=== PATIENT | male | born 1955 | race Caucasian/White ===

== ENCOUNTER 2019-06-20 09:54 | Outpatient (CLI) | payer BC, OTHER ==
[~2019-06-20] VITALS: Ht 180.3 cm; Wt 58.7 kg
[~2019-06-20 09:54] MED LIST: ACHD5005 PO; AMLO10TA82 PO; ATEN25TA PO; CPR500T PO; DEXL60CA5 PO; DICY10SO PO; DICY20TA57 PO; FLUC100T PO; HYDR-3583 PO; LISI10TA2 PO; OMEP-10; OMEP-10 PO; SUCR1TAB PO; TRAM50TA2 PO; TRM50T PO
[2019-06-20] MEDS ORDERED: OMEP40CA27 PO (13:23)
== END 2019-06-20 13:29 | disposition home or self-care (01) ==
LOC: PREOP 09:54
PROVIDERS: ATTEND Surgery
DX: Z01.818 Encounter for other preprocedural examination (principal)

== ENCOUNTER 2019-07-16 09:03 | Outpatient (RCR) | payer OTHER ==
[~2019-07-16] VITALS: Ht 180 cm; Wt 59.0 kg
[~2019-07-16 09:03] MED LIST changes: +OMEP40CA27 PO
== END 2019-07-16 15:46 | disposition home or self-care (01) ==
LOC: PREOP 09:03
PROVIDERS: ATTEND Surgery
DX: Z01.818 Encounter for other preprocedural examination (principal); Z11.59 Encounter for screening for other viral diseases
CPT/HCPCS: 87635

== ENCOUNTER 2020-02-05 05:38 | Outpatient (RCR) | payer OTHER ==
[~2020-02-05] VITALS: Ht 180.3 cm; Wt 63.6 kg
== END 2020-02-05 13:06 | disposition home or self-care (01) ==
LOC: PREOP 05:38
PROVIDERS: ATTEND Surgery
DX: Z01.818 Encounter for other preprocedural examination (principal); K21.9 Gastro-esophageal reflux disease without esophagitis; Z20.828 Contact with and (suspected) exposure to other viral communicable diseases
CPT/HCPCS: 87635

== ENCOUNTER 2020-02-07 10:05 | Day surgery (SDC) | payer OTHER ==
[~2020-02-07] VITALS: Ht 180.3 cm; Wt 63.6 kg
[2020-02-07] VITALS (12 sets, daily range): BP systolic 130–179; BP diastolic 76–105
[2020-02-07] MEDS ORDERED: NS IV 500 ML 500 ML ONE (10:13)
[2020-02-07] MEDS ORDERED: HURRICAINE EXT TUBE (BENZOCAINE) XX PRN (10:15)
[2020-02-07] MEDS ORDERED: LIDOCAINE JELLY 2% 6 ML SYRINGE MM PRN (10:15)
[2020-02-07] MEDS ORDERED: MIDAZOLAM 5 MG/5 ML (VERSED) VIAL IV ONE (10:15)
[2020-02-07] MEDS ORDERED: fentaNYL INJECTION 100 MCG/2 ML AMP IVP ONE (10:15)
[2020-02-07] MEDS ORDERED: NS IV 500 ML 500 ML IV PRN (10:15)
[2020-02-07] MEDS ORDERED: LIDOCAINE JELLY 2% 6 ML SYRINGE ONE (10:50)
[2020-02-07] MEDS ORDERED: fentaNYL INJECTION 100 MCG/2 ML AMP ONE ×2 (10:50)
[2020-02-07] MEDS ORDERED: HURRICAINE EXT TUBE (BENZOCAINE) ONE (10:51)
[2020-02-07] MEDS ORDERED: MIDAZOLAM 5 MG/5 ML (VERSED) VIAL ONE ×3 (10:51)
--- NOTE | 2020-02-07 10:53 | Conscious Sedation/ASA ---
Conscious Sedation Pre-Proced Time 10:00 ASA Score 2 For ASA 3 and 4: Consider anesthesia and medical clearance. Also, for patients with a history of failed moderate sedation consider anesthesia. Airway Lungs Heart ASA score ASA 1: a normal healthy patient ASA 2: a patient with a mild systemic disease (mid diabetes, controlled hypertension, obesity ASA 3: a patient with a severe systemic disease that limits activity (angina, COPD, prior Myocardial infarction) ASA 4: a patient with an incapacitating disease that is a constant threat to life (CHF, renal failure) ASA 5: a moribund patient not expected to survive 24 hrs. (ruptured aneurysm) ASA 6: a declared brain- patient whose organs are being harvested. For emergent operations, add the letter E after the classification Mallampati Classification Grade 2 Sedation Plan Analgesia, Amnesia, Plan communicated to team members, Discussed options with patient/fam, Discussed risks with patient/fam The patient is an appropriate candidate to undergo the planned procedure, sedation, and anesthesia. The patient immediately re-assessed prior to indication. BEN MIRANDA MD Feb 07, 2020 10:53
--- NOTE | 2020-02-07 10:53 | Progress Note-Pre Operative ---
Pre-Operative Progress Note H&P Reviewed The H&P was reviewed, patient examined and no changes noted. Date Seen by Provider: Feb 07, 2020 Time Seen by Provider: 10:00 Date H&P Reviewed: Feb 07, 2020 Time H&P Reviewed: 10:00 Pre-Operative Diagnosis: dysphagia, GERD BEN MIRANDA MD Feb 07, 2020 10:53
--- NOTE | 2020-02-07 10:55 | Discharge Inst-Surgical ---
D/C Lap Instructions-RUBEN Follow Up diet as tolerated High Fiber Diet 25g or more per day Avoid Alcohol, Caffeine, Spicy [employer] and Acid foods. Drink 64 fluid oz or more of fluids per day. Symptoms to Report: Fever over 101 degree F, Nausea/Vomiting If any problems/questions: Contact your physician or go to Emergency Room BEN MIRANDA MD Feb 07, 2020 10:55
[2020-02-07] MEDS ORDERED: ONDANSETRON 4 MG/2 ML (SDV) Z0FRAN IVP PRN (11:00)
[2020-02-07] MEDS ORDERED: ACETAMINOPHEN 325 MG TABLET PO PRN (11:00)
[2020-02-07] MEDS ORDERED: HYDROcodone/APAP 5 MG/325 MG (LORTAB) TAB PO PRN (11:00)
[2020-02-07] MEDS ORDERED: morphine INJ 10 MG/ML 1ML (SYR OR VIAL) IVP PRN ×2 (11:00)
--- NOTE | 2020-02-07 11:37 | Progress Note-Post Operative ---
Post-Operative Progess Note Surgeon (s)/Crossing Flagman (s) Surgeon BEN MIRANDA MD Crossing Flagman: none Pre-Operative Diagnosis dysphagia, GERD Post-Operative Diagnosis esophageal candidiasis, reflux esophagitis(stage 3), moderate gastritis. Procedure & Operative Findings Date of Procedure 02/07/20 Procedure Performed/Findings EGD with bx and balloon dilatation Anesthesia Type cs Estimated Blood Loss Estimated blood loss (mL): minimal Specimens/Packing Specimens Removed ge jxn, antrum BEN MIRANDA MD Feb 07, 2020 11:37
--- NOTE | 2020-02-07 19:06 | OPERATIVE REPORT ---
DATE OF SERVICE: 02/07/2020 ATTENDING PRIMARY CARE PHYSICIAN: Dr. Shane Jimenez. PREOPERATIVE DIAGNOSIS: Recurrent dysphagia. POSTOPERATIVE DIAGNOSES: Reflux esophagitis stage II with a distal esophageal candidiasis and retained food substance within the esophagus, mild distal esophageal stricture. PROCEDURE: EGD with biopsy and balloon dilatation. SURGEON: Ben Miranda MD ANESTHESIA: Conscious sedation. ESTIMATED BLOOD LOSS: Minimal. FINDINGS: Reflux esophagitis stage II with a distal esophageal candidiasis and retained food substance within the esophagus, mild distal esophageal stricture. DISPOSITION: The patient tolerated the procedure well. INDICATIONS: The patient is a 64-year-old male known to us. He has had a longstanding history of gastroesophageal reflux disease as well as regurgitation. He underwent an esophageal manometry as well as a Fátima fundoplication in 1996 in [place]. He then had multiple issues with dysphagia and underwent reversal of the Fátima fundoplication and this was followed by [facility] gastropexy in 1999. This was also taken down due to his recurrent symptoms. We had done an EGD on him before in the past and was found to have esophageal strictures as well as esophageal candidiasis. He is again experiencing significant dysphagia and reflux. DESCRIPTION OF PROCEDURE: The patient was brought to the endoscopy suite, laid in left lateral decubitus position. After adequate IV pain and sedative medications and conscious sedation anesthesia, the mouthpiece was applied. The endoscope was then placed in the mouth, visualizing the pharynx and hypopharyngeal region. The endoscope was then gently intubated at the esophageal opening and esophagus insufflated. The endoscope was then advanced through the first, second and third portion of esophagus with softer retained food substance in the middle and distal third of the esophagus. The GE junction was identified and there was a mild distal esophageal stricture. However, in the distal third of the esophagus, white plaque was again identified consistent with esophageal candidiasis. A biopsy was taken of the GE junction with forceps with visualization of good hemostasis. The endoscope was then advanced into the stomach and endoscope retroflexed, visualizing the distal esophageal stricture. There was a moderate severity gastritis. No formal ulcerations, polyps, or any neoplasms and a biopsy was taken of the antrum to rule out H. pylori with visualization of good hemostasis. The endoscope was then advanced to the pylorus and the first and second portion of the duodenum, which appeared normal with no distal obstructions. The endoscope was then slowly withdrawn while taking a second look and suctioning of residual air with no additional findings. The patient tolerated the procedure well. We will recommend the necessary lifestyle and diet accommodation including small and more frequent meals, avoidance of eating at night as well as head elevation while lying supine. He also needs to proceed with lifestyle and dietary changes, which include smoking cessation as well as avoidance of caffeinated beverages, spicy, greasy and acidic foods. We will have him continue his omeprazole 40 mg daily; however, we will also proceed with another round of Diflucan for two weeks. We then proceeded with balloon dilatation of distal esophageal stricture. The endoscope was slowly withdrawn. The balloon was placed in the stomach and pulled back to the area of stricture and the balloon was then insufflated to 2, 4, then 6 atmospheres of pressure with moderate resistance or 20 mm in luminal diameter and left this in place for 60 seconds. The balloon was then desufflated and removed with visualization of good hemostasis as well as no mucosal tears. The endoscope was then slowly withdrawn while taking a second look and suctioning residual air with no additional findings. Job ID: [id number] DocumentID: [id number] Dictated Date: 02/07/2020 11:30:02 Blind Slat Stapling Machine Operator Date: 02/07/2020 19:04:44 Dictated By: BEN MIRANDA MD
== END 2020-02-07 12:30 | disposition home or self-care (01) ==
LOC: ENDO 10:05
PROVIDERS: ATTEND Surgery
DX: K29.50 Unspecified chronic gastritis without bleeding (principal); K21.00 Gastro-esophageal reflux disease with esophagitis, without bleeding; K22.2 Esophageal obstruction; T18.128A Food in esophagus causing other injury, initial encounter; K44.9 Diaphragmatic hernia without obstruction or gangrene; B37.81 Candidal esophagitis; I10 Essential (primary) hypertension; Z79.899 Other long term (current) drug therapy; Z87.11 Personal history of peptic ulcer disease
CPT/HCPCS: 88305

== ENCOUNTER → 2021-11-17 | Outpatient (CLI) | payer OTHER ==
[~2021-11-17] MED LIST changes: -OMEP40CA27 PO; +OMEP40CA6 PO
[2021-11-17 14:56] LABS: HEMATOCRIT 45 % (40-54); HEMOGLOBIN 16.5 g/dL (13.3-17.7); MEAN CORPUSCULAR HEMOGLOBIN 31 pg (25-34); MEAN CORPUSCULAR HGB CONC 36 g/dL (32-36); MEAN CORPUSCULAR VOLUME 85 fL (80-99); MEAN PLATELET VOLUME 9.9 fL (9.0-12.2); PLATELET COUNT 205 10^3/uL (130-400); WHITE BLOOD COUNT 11.3 10^3/uL (4.3-11.0)
[2021-11-17 15:04] LABS: ALBUMIN 4.4 GM/DL (3.2-4.5)
[2021-11-17 15:05] LABS: POTASSIUM 3.9 MMOL/L (3.6-5.0)
[2021-11-17 15:09] LABS: BILIRUBIN,TOTAL 0.8 MG/DL (0.1-1.0)
[2021-11-17 15:11] LABS: CREATININE SERUM 1.02 MG/DL (0.60-1.30)
--- NOTE | 2021-11-17 15:57 | Diagnostic Imaging Report ---
PROCEDURE: CT chest, abdomen, and pelvis with contrast. TECHNIQUE: Multiple contiguous axial images were obtained through the chest, abdomen, and pelvis after the administration of intravenous contrast. Auto Exposure Controls were utilized during the CT exam to meet ALARA standards for radiation dose reduction. INDICATION: Esophageal pain COMPARISON: 06/11/2014 FINDINGS: CT CHEST: Large amount of debris is again identified throughout the esophagus. Esophagus is moderately distended. It measures 5 cm in diameter. Postsurgical changes at the GE junction are noted. Cardiomediastinal structures show normal heart size. There is no large pericardial effusion. No pathologically enlarged or morphologically abnormal adenopathy is seen within the mediastinum, dean, nor axilla. Hypodense left thyroid lesion measures 1.4 cm in diameter. Evaluation lung carranza show background mild emphysematous changes. There is no focal consolidation, large effusion, no pneumothorax. 6 mm micronodules noted within the lingula of the left upper lobe (image 101, series 3). This however stable compared to 06/11/2014. Additional micronodule is seen within the far anterior margins of the left lower lobe (image 133, series 3). This measures approximately 3 mm in diameter and is stable compared to prior exam as well. Several other small micronodules are also seen on the right and are stable as well. No new suspicious pulmonary nodule or mass is seen. Osseous structures show no acute abnormalities. CT ABDOMEN: There is prominent diffuse gastric wall thickening. Small bowel loops are nondistended. Normal appendix cannot be adequately identified, but there is no pericecal inflammation. Multiple benign-appearing bilateral renal cysts are identified. Otherwise, kidneys, adrenal glands, spleen, pancreas, and liver have a normal CT appearance. There is no loculated fluid collection, free fluid or free air within the abdomen. There is no abnormal mesenteric or intracranial adenopathy. Moderate scattered calcified aortic arch or atherosclerosis is noted. There is also generalized anasarca. CT PELVIS: Urinary bladder is unopacified. No calculi are seen within urinary bladder. Prostate is enlarged. It measures 4.8 x 5.6 cm. There is no loculated fluid collection, free fluid or free air within the pelvis. No abnormal lymph nodes are seen. Osseous structures show no acute abnormalities. IMPRESSION: 1. Profound diffuse dilatation of the esophagus with large amount of foodstuff throughout the esophagus. This may relate to postsurgical changes at the GE junction. Achalasia is also consideration. Correlation with surgical history is advised. Further evaluation with esophagram may be of benefit. 2. Profound diffuse gastric wall thickening. Findings are nonspecific, but can be seen with gastritis. Correlation with upper endoscopy may be of benefit as well. 3. Prostatomegaly. Dictated by: Dictated on workstation # [id number]
== END ==
LOC: RAD 14:37
PROVIDERS: ATTEND Surgery
DX: K22.89 Other specified disease of esophagus (principal); K31.89 Other diseases of stomach and duodenum; N40.0 Benign prostatic hyperplasia without lower urinary tract symptoms
CPT/HCPCS: 36415; 71260; 74177; 80053; 85027

== ENCOUNTER 2021-12-08 06:27 | Outpatient (CLI) | payer OTHER ==
[~2021-12-08] VITALS: Ht 177.8 cm; Wt 59.0 kg
[2021-12-08] MEDS ORDERED: TMSL.4C PO (09:23)
[2021-12-08] MEDS ORDERED: PANT40TA52 PO (09:23)
== END 2021-12-08 09:24 | disposition home or self-care (01) ==
LOC: PREOP 06:27
PROVIDERS: ATTEND Surgery
DX: Z01.818 Encounter for other preprocedural examination (principal)

== ENCOUNTER 2021-12-17 10:59 | Day surgery (SDC) | payer OTHER ==
[~2021-12-17] VITALS: Ht 177 cm; Wt 59.0 kg
[~2021-12-17 10:59] MED LIST changes: +PANT40TA52 PO; +TMSL.4C PO
[2021-12-17] MEDS ORDERED: LACTATED RINGERS 1,000 ML IV STA (11:03)
[2021-12-17 11:05] VITALS: BP 127/82
[2021-12-17] MEDS ORDERED: LIDOCAINE JELLY 2% 6 ML SYRINGE MM PRN (11:15)
[2021-12-17] MEDS ORDERED: HURRICAINE EXT TUBE (BENZOCAINE) XX PRN (11:15)
--- NOTE | 2021-12-17 12:20 | Progress Note-Pre Operative ---
Pre-Operative Progress Note Date of Available H&P: Dec 17, 2021 Date H&P Reviewed: Dec 17, 2021 Time H&P Reviewed: 11:45 History & Physical: No changes noted Pre-Operative Diagnosis: screening o BEN MIRANDA MD Dec 17, 2021 12:20
--- NOTE | 2021-12-17 12:21 | Discharge Inst-Surgical ---
D/C Lap Instructions-RUBEN Follow Up Activity as tolerated High Fiber Diet 25g or more per day Avoid Alcohol, Caffeine, Spicy [employer] and Acid foods. Drink 64 fluid oz or more of fluids per day. Symptoms to Report: Fever over 101 degree F, Nausea/Vomiting If any problems/questions: Contact your physician or go to Emergency Room BEN MIRANDA MD Dec 17, 2021 12:21
[2021-12-17] MEDS ORDERED: ONDANSETRON 4 MG (ZOFRAN) ORAL DISSOLVE TAB PO PRN (12:30)
[2021-12-17] MEDS ORDERED: ONDANSETRON 4 MG/2 ML (SDV) Z0FRAN IVP PRN (12:30)
[2021-12-17] MEDS ORDERED: PROPOFOL INJECTION 50 ML IV ONE ×2 (12:51→13:24)
[2021-12-17] MEDS ORDERED: MIDAZOLAM 2 MG/2 ML (VERSED) VIAL ONE (12:51)
[2021-12-17 13:45] VITALS: BP 108/60
[2021-12-17 13:50] VITALS: BP_SYST 109; BP_DIAS 606; BP_DIAS 65
--- NOTE | 2021-12-17 14:03 | Progress Note-Post Operative ---
Post-Operative Progess Note Surgeon (s)/Extracorporeal Technician (s) Surgeon BEN MIRANDA MD Extracorporeal Technician: none Pre-Operative Diagnosis recurrent dysphagia Post-Operative Diagnosis retained food esophagus, distal esophageal stricutre x2, recurrent HH, severe gastritis. Procedure & Operative Findings Date of Procedure 12/17/21 Procedure Performed/Findings EGD with removal esoph FB, bx, dilatation x2. Anesthesia Type mac Estimated Blood Loss Estimated blood loss (mL): minimal Specimens/Packing Specimens Removed ge jxn, antrum BEN MIRANDA MD Dec 17, 2021 14:03
--- NOTE | 2021-12-17 14:24 | Anesthesia-General Post-Op ---
MAC Patient Condition Mental Status/LOC: Same as Preop Cardiovascular: Satisfactory Nausea/Vomiting: Absent Respiratory: Satisfactory Pain: Controlled Complications: Absent Post Op Complications Complications None Follow Up Care/Instructions Patient Instructions None needed. Anesthesiology Discharge Order Discharge Order Patient is doing well, no complaints, stable vital signs, no apparent adverse anesthesia problems. No complications reported per nursing. CARLOS NICOLE CRNA Dec 17, 2021 14:24
[2021-12-17 14:31] VITALS: BP 109/65
--- NOTE | 2021-12-17 16:08 | OPERATIVE REPORT ---
DATE OF SERVICE: 12/17/2021 ATTENDING PRIMARY CARE PHYSICIAN: Dr. Shane Jimenez. PREOPERATIVE DIAGNOSIS: Dysphagia with history of two distal esophageal strictures. POSTOPERATIVE DIAGNOSES: Retained food within the esophagus, stricture of the distal esophagus x2, recurrent hiatal hernia, severe gastritis, no distal obstructions. PROCEDURE: EGD with removal of esophageal foreign body, biopsy and balloon dilatation x2 on 2 different areas of the esophagus. SURGEON: Ben Miranda MD. ANESTHESIA: Monitored anesthesia care. ESTIMATED BLOOD LOSS: Minimal. FINDINGS: Retained food within the esophagus, stricture of the distal esophagus x2, recurrent hiatal hernia, severe gastritis, no distal obstructions. DISPOSITION: The patient tolerated the procedure well. INDICATIONS: The patient is a 66-year-old male known to us. He has a longstanding history of gastroesophageal reflux disease and underwent a hiatal hernia repair and Fátima fundoplication. He had significant dysphagia issues, and this was taken down to switch to a [facility] gastropexy. Over the time, he did develop recurrent dysphagia, found to have esophageal stricture as well as esophageal candidiasis. He underwent an EGD and balloon dilatation in 06/2019. We were able to dilate to 17 mm at that time. On 11/15/2021, he underwent another EGD as well as a balloon dilatation of two areas of the distal esophagus with stricture likely secondary from his previous esophageal surgeries. There is esophageal foreign body again. He again has recurrent dysphagia. DESCRIPTION OF PROCEDURE: The patient was brought to the endoscopy suite, laid in left lateral decubitus position with head elevated. After adequate IV pain and sedative medications and monitored anesthesia care, the mouthpiece was applied. The endoscope was placed in the mouth, visualizing the pharynx and hypopharyngeal region. Vocal cords, epiglottis and vallecula identified and appeared to be normal. The endoscope was gently intubated the esophageal opening and esophagus insufflated. The endoscope was then advanced through the esophagus where there was food substance throughout the distal two thirds of the esophagus. This was irrigated and suctioned as well as possible for the material was a relatively soft. Once evacuated, there was 2 esophageal strictures identified in two different spots secondary from scar tissue and his previous esophageal surgeries. A biopsy was taken of the GE junction with forceps with visualization of good hemostasis. The endoscope was then advanced in the stomach and endoscope retroflexed, visualizing a recurrent hiatal hernia as well as a severe gastritis, which was diffuse. A biopsy was taken of the antrum to rule out H. pylori. The endoscope was then advanced through the pylorus and the first and second portion of the duodenum, which appeared normal with no distal obstructions. We then proceeded with balloon dilatation of the esophagus at the two areas of stricture. First, at the distal most portion of the GE junction. We proceeded with a graded stepwise fashion from 2, 4, then eventually 5 atmospheres of pressure or approximately 19 mm in luminal diameter left this in place for approximately 60 seconds with moderate resistance. The balloon was then desufflated and removed. We used a different balloon and pulled back to the area of the second stricture and again dilated in a graded stepwise fashion from 2, 4 and eventually 4 atmospheres of pressure approximately 18.5 mm in luminal diameter and left this in place for approximately 60 seconds. The balloon was then desufflated and removed with visualization of good hemostasis as well as no mucosal tears. The endoscope was then slowly withdrawn while taking a second look and suctioning of residual air with no additional findings. The patient tolerated the procedure well. He does have significant esophageal strictures; however, we are unsure if he is a candidate for surgery; however, we will have him follow up in the office in the next week to discuss the possibility versus proceeding with continued graded dilatation on a regular basis to prevent the episodes of recurrent strictures as well as the dysphagia. Job ID: [id number] DocumentID: [id number] Dictated Date: 12/17/2021 13:49:22 Food Service Assistant Date: 12/17/2021 15:07:21 Dictated By: BEN MIRANDA MD
== END 2021-12-17 14:35 | disposition home or self-care (01) ==
LOC: ENDO 10:59
PROVIDERS: ATTEND Surgery
DX: T18.128A Food in esophagus causing other injury, initial encounter (principal); K22.2 Esophageal obstruction; K44.9 Diaphragmatic hernia without obstruction or gangrene; K29.50 Unspecified chronic gastritis without bleeding; K21.00 Gastro-esophageal reflux disease with esophagitis, without bleeding; B37.81 Candidal esophagitis; K29.30 Chronic superficial gastritis without bleeding; Z79.899 Other long term (current) drug therapy; Z98.890 Other specified postprocedural states; X58.XXXA Exposure to other specified factors, initial encounter